=== PATIENT | female | born 1985 | race Caucasian/White ===

== ENCOUNTER 2019-06-21 16:04 | Outpatient (CLI) | payer BC ==
--- NOTE | 2019-06-21 17:00 | Non Stress Test Report ---
Non Stress Test Datetime Report Generated by CPN: 06/21/2019 17:00 DEMOGRAPHIC Test Number: 1 Test Number: 1 EGA NST: 38.5 INDICATION Indication for Study (NST) Other: Provider Order Indication for Study (NST) Other: Repeat NST low baseline in office VITAL SIGNS Temperature - NST: 98.3 Pulse - NST: 70 RESP - NST: 18 NBPSYS NST: 118 NBPDIA NST: 66 MONITORING Monitor Explained: Monitor Explained; Test Explained; Patient Verbalized Understanding Monitor Explained: Monitor Explained; Test Explained; Patient Verbalized Understanding Time on Monitor: 06/21/2019 16:31 Time on Monitor: 06/21/2019 16:34 Time off Monitor: 06/21/2019 16:59 NST Duration: 28 NST INTERVENTIONS NST Interventions: None NST Interventions: PO Hydration Physician Notified NST: AWynn,CNM BABY A: [id number] BABY A Movement : Present Movement : Present Contraction Frequency : 0 FHR Baseline : 115 FHR Baseline : 115 Accelerations : 15X15 Accelerations : 15X15 Decelerations : None Decelerations : None Variability : Absent - Undetectable Variability : Moderate 6-25bpm NST Review: Meets Criteria for Reactive NST NST Review: Meets Criteria for Reactive NST NST Review and Verified By : LIBIA Hardin Results: Reactive NST Results: Reactive NST REPORT Report Trigger: Send Report
[2019-06-21] MEDS ORDERED: METOPROLOL TARTRATE 25 MG TABLET PO ONE (17:30)
== END 2019-06-21 16:09 | disposition home or self-care (01) ==
LOC: LC 16:04
PROVIDERS: ATTEND Obstetrics & Gynecology
DX: O36.8330 Maternal care for abnormalities of the fetal heart rate or rhythm, third trimester, not applicable or unspecified (principal); Z3A.38 38 weeks gestation of pregnancy
CPT/HCPCS: 59025

== ENCOUNTER 2019-06-30 06:05 | Inpatient (IN) | payer BC ==
[2019-06-30] MEDS ORDERED: PENICILLIN G-K 5 MILLION UNIT VIAL ONE ×2 (07:09→10:52)
[2019-06-30] MEDS ORDERED: MISOPROSTOL 0.2 MG TABLET ONE (07:27)
[2019-06-30] MEDS ORDERED: LIDOCAINE 1% INJ-PF (10 MG/ML) 30 ML SDV ONE (07:27)
[2019-06-30] MEDS ORDERED: OXYTOCIN 10 UNIT/ML VIAL ONE ×2 (07:27→13:42)
[2019-06-30] MEDS ORDERED: OXYTOCIN/0.9 % SODIUM CHLORIDE 30 UNIT/500 ML RTUINJ ONE ×2 (07:28→12:13)
[2019-06-30 07:41] LABS: ABSOLUTE BASOPHILS # (AUTO) 0.1 10^3/uL (0.0-0.2); ABSOLUTE LYMPHOCYTES (AUTO) 1.7 10^3/uL (0.5-4.7); ABSOLUTE NEUT (AUTO) 16.6 10^3/uL (1.7-8.2); BASOPHILS % (AUTO) 0.5 % (0-2); EOSINOPHILS % (AUTO) 0.1 % (0-6); HEMATOCRIT 30.4 % (36.0-47.0); HEMOGLOBIN 10.7 g/dL (12.0-15.5); LYMPHOCYTES % (AUTO) 8.6 % (13-45); MEAN CORPUSCULAR HGB CONC 35.1 g/dL (32.0-36.0); MEAN CORPUSCULAR VOLUME 94 fl (80-97); MONOCYTES % (AUTO) 5.4 % (3-13); PLATELET COUNT 199 10^3/uL (150-450); RED BLOOD COUNT 3.23 10^6/uL (3.72-5.28); RED CELL DISTRIBUTION WIDTH 12.7 % (11.5-14.0); SEGMENTED NEUTROPHILS % (AUTO) 85.4 % (42-78); TOTAL CELLS COUNTED % (AUTO) 100 %; WHITE BLOOD COUNT 19.4 10^3/uL (4.0-10.5)
[2019-06-30] MEDS ORDERED: PENICILLIN G POTASSIUM 5,000,000 UNIT in DEXTROSE 5%-WATER 100 ML IV ONE (07:58)
[2019-06-30] MEDS ORDERED: RINGERS SOLUTION,LACTATED 1,000 ML IV ONE (07:58)
[2019-06-30] MEDS: RINGERS SOLUTION,LACTATED 1,000 ML IV PRN (08:06)
--- NOTE | 2019-06-30 09:29 | Admission Physical ---
Datetime Report Generated by CPN: 06/30/2019 09:28 CURRENT ADMISSION Hx Assessment: The History has been Reviewed and is Current Chief Complaint: Uterine Contractions; Suspected Ruptured Membranes Indication for Induction: Not Applicable Admit Impression : Term, Intrauterine Admit Plan: Admit to Unit; Initiate Labor Protocol ALLERGIES Medication Allergies: No Medication Allergies: No Known Allergies (06/21/2019) Latex: No Latex Allergies OBSTETRICAL HISTORY EDC: 06/30/2019 00:00 : 1 Para: 0 Term: 0 : 0 SAB: 0 IAB: 0 Ectopic: 0 Livin Cesareans: 0 VBACs: 0 Multiple Births: 0 Gestational Diabetes: No Rh Sensitization: No Incompetent Cervix: No CAIT: No Infertility: No ART Treatment: No Uterine Anomaly: No IUGR: No Hx Previous C/S: No Macrosomia: No Hx Loss/Stillborn: No PIH: No Hx : No Placenta Previa/Abruption: No Depression/PP Depression: No PTL/PROM: No Post Hemorrhage: No Current Procedures: Ultrasound Obstetrical History Comments: G1- Current SEE RECORDS Alcohol: No Marijuana : No Cocaine: No Other Illicit Drugs: No Cigarettes: Never Smoker. [id number] MEDICAL HISTORY Diabetes: No Blood Transfusion: No Pulmonary Disease (Asthma, TB): No Breast Disease: No Hypertension: No Geochemist Surgery: No Heart Disease: No Hosp/Surgery: No Autoimmune Disorder: No Anesthetic Complications: No Kidney Disease: No Abnormal Pap Smear: No Neuro/Epilepsy: No Psychiatric Disorders: No Other Medical Diseases: No Hepatitis/Liver Disease: No Significant Family History: No Varicosities/Phlebitis: No Trauma/Violence : No Thyroid Dysfunction: No Medical History Comments: Anxiety INFECTIOUS HISTORY Gonorrhea: No Genital Herpes: No Chlamydia: No Tuberculosis: No Syphilis: No Hepatitis: No HIV/AIDS Exposure: No Rash or Viral Illness: No HPV: No PHYSICAL EXAM General: Normal Heart: Normal Lungs: Normal Abdomen: Normal Extremities: Normal Pelvic Type: Adequate Vital Signs: Reviewed MEMBRANES Membranes: Ruptured Amniotic Fluid Color: Clear FETUS A EGA: 40.0 Monitoring: External US Variability: Moderate 6-25bpm Decelerations: None Estimated Weight (gm): 3786 Presentation: Vertex Admit Comment: 33yo G1 @ 40wga into L_D with SROM @ 0215 and UC. Pt is A pos, Rubella Non-Immune, GBS pos, with hx of oral surgery and lasik. complicated by questionable echogenic bowel and intracardiac echogenic flow in left ventricle on anatomy u/s with normal flow on echo. Pt just transfered in from [place] at 38w5d. Plan is delivery, epidural prn. Dr. Cardoza is the OB wafer production lead worker today and aware of admission and pt status. PLANS FOR LABOR AND DELIVERY Labor and Delivery: None Pain Management: None Other Pain Management Plans: Avoiding epidural Feeding Preference: Breast Benefit of Breast Feed Discussed: Yes Circumcision: N/A INFORMED CONSENT Assignment: Minesh Cardoza MD Signature: with User ID: [email or web address] : with User ID: [email or web address]
[2019-06-30] MEDS ORDERED: DEXAMETHASONE SOD PHOSPHATE INJ 4 MG/1 ML VIAL ONE (09:31)
[2019-06-30] MEDS ORDERED: ONDANSETRON HCL INJ/PF 4 MG/2 ML SDV ONE (09:31)
[2019-06-30] MEDS ORDERED: PHENYLEPHRINE HCL INJ/PF 10 MG/1 ML SDV ONE (09:31)
[2019-06-30] MEDS ORDERED: SUCCINYLCHOLINE CHLORIDE INJ 200 MG/10 ML VIAL ONE (09:31)
[2019-06-30] MEDS ORDERED: ROCURONIUM BROMIDE INJ 50 MG/5 ML VIAL IV ONE (09:31)
[2019-06-30 09:50] LABS: APPEARANCE,URINE TURBID; BILIRUBIN,URINE NEGATIVE (NEGATIVE); COLOR,URINE YELLOW; GLUCOSE, URINE NEGATIVE (NEGATIVE); KETONES,URINE TRACE mg/dL (NEGATIVE); LEUKOCYTE ESTERASE,URINE MODERATE (NEGATIVE); NITRITE,URINE NEGATIVE (NEGATIVE); PROTEIN,URINE 100 mg/dL (NEGATIVE); URINE SPECIFIC GRAVITY 1.012; UROBILINOGEN,URINE NEGATIVE mg/dL (<2.0)
[2019-06-30 10:37] LABS: URINE AMPHETAMINES SCREEN NEGATIVE; URINE BARBITURATES SCREEN NEGATIVE; URINE BENZODIAZEPINES SCREEN NEGATIVE; URINE COCAINE SCREEN NEGATIVE; URINE MARIJUANA (THC) SCREEN NEGATIVE; URINE METHADONE SCREEN NEGATIVE; URINE PHENCYCLIDINE SCREEN NEGATIVE
[2019-06-30] MEDS ORDERED: FENTANYL CITRATE INJ/PF 100 MCG/2 ML AMPUL ONE ×2 (10:39→13:02)
[2019-06-30] MEDS ORDERED: FENTANYL CITRATE INJ/PF 100 MCG/2 ML AMPUL IV ONE (10:45)
[2019-06-30] MEDS: PENICILLIN G POTASSIUM 2,500,000 UNIT in DEXTROSE 5%-WATER 50 ML IV SCH ×2 (10:59→18:17)
[2019-06-30] MEDS ORDERED: METHYLERGONOVINE MALEATE INJ/PF 0.2 MG/1 ML AMPULE IM ONE (12:05)
[2019-06-30] MEDS ORDERED: METHYLERGONOVINE MALEATE INJ/PF 0.2 MG/1 ML AMPULE ONE (12:08)
[2019-06-30] MEDS ORDERED: TRANEXAMIC ACID INJ/PF 1,000 MG/10 ML SDV IV ONE (12:10)
[2019-06-30] MEDS ORDERED: PSEUDOEPHEDRINE HCL 30 MG TABLET PO PRN (12:12)
[2019-06-30] MEDS ORDERED: ACETAMINOPHEN WITH CODEINE #3 TABLET PO PRN (12:12)
[2019-06-30] MEDS ORDERED: NA PHOS,M-B/NA PHOS,DI-BA (ADULT) 133 ML ENEMA PR PRN (12:12)
[2019-06-30] MEDS ORDERED: OXYTOCIN/0.9 % SODIUM CHLORIDE 30 UNIT/500 ML RTUINJ IV PRN (12:12)
[2019-06-30] MEDS ORDERED: MAGNESIUM HYDROXIDE SUSP 30 ML UDCUP PO PRN (12:12)
[2019-06-30] MEDS ORDERED: PROMETHAZINE HCL INJ 25 MG/1 ML VIAL IV PRN (12:12)
[2019-06-30] MEDS ORDERED: ZOLPIDEM TARTRATE 5 MG TABLET PO PRN (12:12)
[2019-06-30] MEDS ORDERED: DIPHENHYDRAMINE HCL 25 MG CAPSULE PO PRN (12:12)
[2019-06-30] MEDS ORDERED: PROMETHAZINE HCL 25 MG TABLET PO PRN (12:12)
[2019-06-30] MEDS ORDERED: DIPH/PERTUSS(ACELL)/TETANUS VAC/PF 0.5 ML SYR (>=10YO) IM PRN (12:12)
[2019-06-30] MEDS ORDERED: DIBUCAINE 1% OINTMENT 28 GM TP PRN (12:12)
[2019-06-30] MEDS ORDERED: GLYCERIN/WITCH HAZEL LEAF 1 EACH MED..WIPE TP PRN (12:12)
[2019-06-30] MEDS ORDERED: MEASLES,MUMPS&RUBELLA VACC/PF 0.5 ML VIAL SUBCUT PRN (12:12)
[2019-06-30] MEDS ORDERED: BENZOCAINE/MENTHOL AEROSOL SPRAY 56 ML TOP PRN (12:12)
[2019-06-30] MEDS ORDERED: ACETAMINOPHEN 650 MG SUPP.RECT PR PRN (12:12)
[2019-06-30] MEDS ORDERED: PROMETHAZINE HCL 25 MG SUPP.RECT PR PRN (12:12)
[2019-06-30] MEDS ORDERED: TRANEXAMIC ACID INJ/PF 1,000 MG/10 ML SDV ONE (12:13)
[2019-06-30] MEDS ORDERED: OXYTOCIN/0.9 % SODIUM CHLORIDE 30 UNIT/500 ML RTUINJ IV ONE (12:15)
[2019-06-30] MEDS ORDERED: CARBOPROST TROMETHAMINE INJ 250 MCG/1 ML AMPULE IM ONE (12:20)
[2019-06-30] MEDS ORDERED: HYDROMORPHONE HCL INJ/PF 2 MG/ML AMPULE IV ONE (12:20)
[2019-06-30] MEDS ORDERED: HYDROMORPHONE HCL INJ/PF 2 MG/ML AMPULE ONE ×2 (12:23→13:01)
[2019-06-30] MEDS ORDERED: CARBOPROST TROMETHAMINE INJ 250 MCG/1 ML AMPULE ONE (12:23)
[2019-06-30] MEDS ORDERED: ACETAMINOPHEN 325 MG TABLET ONE (12:44)
[2019-06-30] MEDS ORDERED: LOPERAMIDE HCL 2 MG CAPSULE ONE (12:44)
[2019-06-30] MEDS ORDERED: AMPICILLIN SOD/SULBACTAM 3 GM VIAL IV ONE (12:45)
[2019-06-30] MEDS ORDERED: AMPICILLIN SOD/SULBACTAM 3 GM VIAL ONE ×2 (12:45→20:59)
[2019-06-30 12:53] LABS: FIBRINOGEN 373 mg/dL (209-497); INTERNATIONAL RATION (INR) 1.06; PARTIAL THROMBOPLASTIN TIME 23.5 SEC (23.5-35.8); PROTHROMBIN TIME 13.8 SEC (11.4-15.4)
[2019-06-30] MEDS ORDERED: MIDAZOLAM 2 MG/2 ML INJ ONE (13:02)
[2019-06-30] MEDS ORDERED: PROPOFOL INJ 200 MG/20 ML VIAL IV ONE (13:02)
[2019-06-30 13:03] LABS: HEMATOCRIT 26.7 % (36.0-47.0); HEMOGLOBIN 9.1 g/dL (12.0-15.5); MEAN CORPUSCULAR HEMOGLOBIN 32.2 pg (27.0-33.4); MEAN CORPUSCULAR VOLUME 95 fl (80-97); PLATELET COUNT 315 10^3/uL (150-450); RED BLOOD COUNT 2.81 10^6/uL (3.72-5.28); RED CELL DISTRIBUTION WIDTH 12.7 % (11.5-14.0); WHITE BLOOD COUNT 29.4 10^3/uL (4.0-10.5)
[2019-06-30 13:31] LABS: ABSOLUTE LYMPHOCYTES# (MANUAL) 1.5 10^3/uL (0.5-4.7); ABSOLUTE MONOCYTES # (MANUAL) 2.1 10^3/uL (0.1-1.4); BASOPHILS % (MANUAL) 0 % (0-2); EOSINOPHILS % (MANUAL) 0 % (0-6); LYMPHOCYTES % (MANUAL) 5 % (13-45); MONOCYTES % (MANUAL) 7 % (3-13); PLATELET COMMENT ADEQUATE; RBC MORPHOLOGY COMMENT NORMO-CYTIC/CHROMIC; SEGMENTED NEUTROPHILS % (MAN) 88 % (42-78); TOTAL CELLS COUNTED 100; TOXIC GRANULATION SLIGHT
--- NOTE | 2019-06-30 14:16 | Operative Report ---
Operative Report DATE OF SURGERY: 06/30/19 PREOPERATIVE DIAGNOSIS: hemorrhage with uterine atony POSTOPERATIVE DIAGNOSIS: Same OPERATION: Exam under anesthesia sharp curettage uterine packing SURGEON: BLANCA BISHOP CHILD SUPPORT AGENT: KHLOE JONES ANESTHESIA: GA TISSUE REMOVED OR ALTERED: Uterine contents COMPLICATIONS: None ESTIMATED BLOOD LOSS: Approximately 300 cc PROCEDURE: Patient was taken to the OR prepped draped sterile fashion placed in a dorsal lithotomy position speculum is placed and cervix visualized and grasped with a ring forceps. Copious blood clots were then removed with manual effort. Following this sharp curettage was performed. Uterus was then packed with a Kerlix pack. A previously noted midline abrasion with all her repeated examinations had extended to the right vaginal wall this defect was closed with a running suture of 0 chromic. Procedure was terminated she was taken to recovery room in good condition
--- NOTE | 2019-06-30 16:02 | Delivery Summary ---
Del Sum A-C Datetime Report Generated by CPN: 06/30/2019 16:02 DELIVERY PERSONNEL DELIVERY PERSONNEL: [id number] Delivery Doctor:: Minesh Cardoza MD Labor and Delivery Nurse:: Kathy Trujillo RNinstrument repairer steam plant Nurse:: RATNA Lara Mobile Paint Specialist:: Vanessa Khanna RN Java Software Developer/FIELD HAULER: Ruth Robles, SHALE PROCESSING TECHNICIAN Java Software Developer/FIELD HAULER: Sonia Hawkins, ST MATERNAL INFORMATION Delivery Anesthesia: None Medications After Delivery: Pitocin Bolus-Please Comment; Pitocin 30 Units in 500ml NS/D5W; Methergine 0.2mg IM; Cytotec 1000mcg Per Rectum/Vagina; Other-Please Comment Meds After Delivery Comment: TXA, hemabate Delivery QBL Comment: Over 2000ml blood loss, patient taken to O.R. for D_C Maternal Complications: None; Hemorrhage LABOR SUMMARY EDC: 06/30/2019 00:00 No. Babies in Womb: 1 Attempted: No Labor Anesthesia: IV Sedation LABOR INFORMATION Reason for Induction: Not Applicable Onset of Labor: 06/30/2019 02:45 Complete Dilatation: 06/30/2019 11:14 Oxytocin: N/A Group B Beta Strep: Positive Antibiotics # of Doses: 2 Antibiotics Time of Last Dose: 1100 Name of Antibiotic Given: Penicillin Steroids Given: None Reason Steroids Not Administered: Not Applicable MEMBRANES Membranes Rupture Method: Spontaneous Rupture of Membranes: 06/30/2019 02:45 Length of Rupture (hr): 9.27 Amniotic Fluid Color: Clear Amniotic Fluid Amount: Small Amniotic Fluid Odor: Normal STAGES OF LABOR Stage 1 hr: 8 Stage 1 min: 29 Stage 2 hr: 0 Stage 2 min: 47 Stage 3 hr: 0 Stage 3 min: 3 Total Time in Labor hr: 9 Total Time in Labor min: 19 VAGINAL DELIVERY Episiotomy: None Laceration #1: Vaginal Laceration Extension #1: N/A Laceration Repair: Not Applicable Laceration Repair Note: did not require repair BABY A INFORMATION Infant Delivery Date/Time: 06/30/2019 12:01 Method of Delivery: Vaginal Nurse Controlled Delivery: No Born in Route : No : N/A Forceps: N/A Vacuum Extraction: N/A Shoulder Dystocia : No PRESENTATION/POSITION BABY A Presentation: Cephalic Cephalic Presentation: Vertex Vertex Position: Right Occipital Anterior Breech Presentation: N/A PLACENTA INFORMATION BABY A Placenta Delivery Time : 06/30/2019 12:04 Placenta Method of Delivery: Spontaneous Placenta Status: Delivered SCORES BABY A Heart Rate 1 min: >100 bpm Resp Effort 1 min: Good Cry Reflex Irritability 1 min: Grimace Muscle Tone 1 min: Some Flexion of Extremities Color 1 min: Blue/Pale SCORE 1 MIN: 6 Heart Rate 5 min: >100 bpm Resp Effort 5 min: Good Cry Reflex Irritability 5 min: Cough or Sneeze or Pulls Away Muscle Tone 5 min: Active Motion Color 5 min: Body Dale, Extremities Blue SCORE 5 MIN: 9 INFORMATION BABY A Gestational Age at Delivery: 40.0 Gestational Status: Full Term- 39- 40.6 Weeks Infant Outcome : Liveborn Condition : Stable Infant Sex: Female WEIGHT/LENGTH BABY A Birthweight (gm): 3810 Infant Weight (lb): 8 Infant Weight (oz): 6 Infant Length (in): 20.50 Length (cm): 52.07 CORD INFORMATION BABY A No. Cord Vessels: 3 Nuchal Cord : Around Neck x1, Loose Cord Blood Taken: Yes-For Storage (Mom's Blood type +) Suction: None ASSESSMENT BABY A Complications: None Physical Findings at Delivery: Within Normal Limits Respirations: Appears Normal Skin to Skin: No Poultry Vaccinator/ALS Called : No Transferred To: [facility] BABY B INFORMATION : N/A SIGNATURES Signature: with User ID: [email or web address]
[2019-06-30] MEDS: IBUPROFEN 800 MG TABLET PO SCH ×2 (16:26→22:04)
[2019-06-30] MEDS ORDERED: METHYLERGONOVINE MALEATE 0.2 MG TABLET ONE ×2 (18:09→22:01)
[2019-06-30] MEDS ORDERED: FERROUS SULFATE 325 MG TABLET PO ONE (18:19)
[2019-06-30] MEDS ORDERED: DOCUSATE SODIUM 100 MG CAPSULE ONE (18:19)
[2019-06-30] MEDS: METHYLERGONOVINE MALEATE 0.2 MG TABLET PO SCH ×2 (18:20→22:04)
[2019-06-30] MEDS: FERROUS SULFATE 325 MG TABLET PO SCH (18:20)
[2019-06-30] MEDS: DOCUSATE SODIUM 100 MG CAPSULE PO SCH (18:20)
[2019-06-30] MEDS ORDERED: AMPICILLIN SOD/SULBACTAM 3 GM VIAL IV SCH (21:00)
[2019-06-30] MEDS: AMPICILLIN SODIUM/SULBACTAM NA 3 GM in NORMAL SALINE 100 ML IV SCH (21:08)
[2019-06-30 21:17] LABS: HEMATOCRIT 26.2 % (36.0-47.0); HEMOGLOBIN 9.2 g/dL (12.0-15.5); MEAN CORPUSCULAR HEMOGLOBIN 32.2 pg (27.0-33.4); MEAN CORPUSCULAR HGB CONC 35.1 g/dL (32.0-36.0); MEAN CORPUSCULAR VOLUME 92 fl (80-97); PLATELET COUNT 202 10^3/uL (150-450); RED BLOOD COUNT 2.85 10^6/uL (3.72-5.28); RED CELL DISTRIBUTION WIDTH 13.7 % (11.5-14.0); WHITE BLOOD COUNT 29.9 10^3/uL (4.0-10.5)
[2019-06-30 21:38] LABS: ABSOLUTE LYMPHOCYTES# (MANUAL) 1.5 10^3/uL (0.5-4.7); ABSOLUTE MONOCYTES # (MANUAL) 0.6 10^3/uL (0.1-1.4); BAND NEUTROPHILS % (MANUAL) 2 % (3-5); BASOPHILS % (MANUAL) 0 % (0-2); EOSINOPHILS % (MANUAL) 0 % (0-6); LYMPHOCYTES % (MANUAL) 5 % (13-45); METAMYELOCYTES % (MANUAL) 1 % (0-1); MONOCYTES % (MANUAL) 2 % (3-13); SEGMENTED NEUTROPHILS % (MAN) 90 % (42-78); TOTAL CELLS COUNTED 100
[2019-06-30 21:39] LABS: OVALOCYTES SLIGHT; PLATELET COMMENT ADEQUATE; POIKILOCYTOSIS SLIGHT
[2019-06-30 21:40] LABS: TOXIC GRANULATION SLIGHT
[2019-06-30] MEDS ORDERED: IBUPROFEN 800 MG TABLET ONE (22:01)
[2019-06-30] MEDS ORDERED: FAMOTIDINE 20 MG TABLET ONE (22:01)
[2019-06-30] MEDS: FAMOTIDINE 20 MG TABLET PO SCH (22:04)
[2019-07-01] MEDS ORDERED: METHYLERGONOVINE MALEATE 0.2 MG TABLET ONE ×5 (01:58→18:48)
[2019-07-01] MEDS: METHYLERGONOVINE MALEATE 0.2 MG TABLET PO SCH ×5 (02:01→18:48)
[2019-07-01] MEDS: RINGERS SOLUTION,LACTATED 1,000 ML IV PRN (02:02)
[2019-07-01] MEDS: AMPICILLIN SODIUM/SULBACTAM NA 3 GM in NORMAL SALINE 100 ML IV SCH ×3 (05:03→21:15)
[2019-07-01] MEDS ORDERED: IBUPROFEN 800 MG TABLET ONE ×3 (05:59→21:01)
[2019-07-01] MEDS: IBUPROFEN 800 MG TABLET PO SCH ×3 (06:02→21:14)
[2019-07-01 06:57] LABS: HEMATOCRIT 22.6 % (36.0-47.0); MEAN CORPUSCULAR HEMOGLOBIN 32.1 pg (27.0-33.4); MEAN CORPUSCULAR HGB CONC 34.8 g/dL (32.0-36.0); MEAN CORPUSCULAR VOLUME 92 fl (80-97); PLATELET COUNT 185 10^3/uL (150-450); RED BLOOD COUNT 2.46 10^6/uL (3.72-5.28); RED CELL DISTRIBUTION WIDTH 14.3 % (11.5-14.0); WHITE BLOOD COUNT 23.6 10^3/uL (4.0-10.5)
[2019-07-01 07:08] LABS: HEMOGLOBIN 7.9 g/dL (12.0-15.5)
[2019-07-01] MEDS ORDERED: NORMAL SALINE 250 ML IV PRN (07:36)
[2019-07-01] MEDS ORDERED: PRENATAL VITAMIN W DHA CAPSULE PO ONE (09:02)
[2019-07-01] MEDS ORDERED: FAMOTIDINE 20 MG TABLET ONE (09:02)
[2019-07-01] MEDS ORDERED: DOCUSATE SODIUM 100 MG CAPSULE ONE ×2 (09:03→18:47)
[2019-07-01] MEDS ORDERED: FERROUS SULFATE 325 MG TABLET PO ONE ×2 (09:03→18:47)
[2019-07-01] MEDS: DOCUSATE SODIUM 100 MG CAPSULE PO SCH ×2 (09:05→18:48)
[2019-07-01] MEDS: FAMOTIDINE 20 MG TABLET PO SCH ×2 (09:05→22:24)
[2019-07-01] MEDS: FERROUS SULFATE 325 MG TABLET PO SCH ×2 (09:05→18:49)
[2019-07-01] MEDS: PRENATAL VITAMIN W DHA CAPSULE PO SCH (09:05)
[2019-07-01] MEDS: SENNOSIDES/DOCUSATE 8.6-50 MG 1 EACH TABLET PO SCH (10:37)
[2019-07-01 12:57] LABS: HEMATOCRIT 25.1 % (36.0-47.0); HEMOGLOBIN 8.7 g/dL (12.0-15.5); MEAN CORPUSCULAR HEMOGLOBIN 31.1 pg (27.0-33.4); MEAN CORPUSCULAR HGB CONC 34.8 g/dL (32.0-36.0); MEAN CORPUSCULAR VOLUME 89 fl (80-97); PLATELET COUNT 164 10^3/uL (150-450); RED BLOOD COUNT 2.81 10^6/uL (3.72-5.28); RED CELL DISTRIBUTION WIDTH 15.4 % (11.5-14.0); WHITE BLOOD COUNT 20.2 10^3/uL (4.0-10.5)
--- NOTE | 2019-07-01 15:59 | PDOC PROGRESS REPORT ---
Subjective Progress Note for:: 07/01/19 Subjective:: s/p PPH after vaginal delivery, +flatus, lopez to gravity in place. No BM. Feels better after 3rd unit of blood. denies dizziness, minimal bleeding through packing. Reason For Visit: IUP @ 40 WEEKS SROM, s/p vaginal delivery, with large pph, s/p 3 units PRBCs, s/p PP D&C due to uterine atony Physical Exam - Physical Exam Vital Signs: Temp Pulse Resp BP Pulse Ox 98.9 F 78 16 123/63 97 07/01/19 10:32 07/01/19 10:32 07/01/19 10:32 07/01/19 10:32 07/01/19 10:32 Intake & Output 06/30/19 07/01/19 07/02/19 06:59 06:59 06:59 Intake Total 3200 300 Output Total 300 Balance 2900 300 Weight 93 kg General appearance: PRESENT: no acute distress, well-developed, well-nourished Head exam: PRESENT: atraumatic, normocephalic Respiratory exam: PRESENT: clear to auscultation michael, symmetrical, unlabored Cardiovascular exam: PRESENT: RRR. ABSENT: diastolic murmur, rubs, systolic murmur GI/Abdominal exam: PRESENT: normal bowel sounds, soft, other - fundus below umbilicus1-2cm, marking placed for continued tracking.. ABSENT: distended, guarding, mass, organolmegaly, rebound, tenderness Rectal exam: PRESENT: deferred Extremities exam: PRESENT: full ROM. ABSENT: calf tenderness, clubbing, pedal edema Neurological exam: PRESENT: alert, awake, oriented to person, oriented to place, oriented to time, oriented to situation, CN II-XII grossly intact. ABSENT: motor sensory deficit Skin exam: PRESENT: dry, intact, warm. ABSENT: cyanosis, rash Result Laboratory Results: 07/01/19 12:34 06/30/19 06/30/19 07/01/19 07:26 21:02 06:35 WBC 29.9 H 23.6 H RBC 2.85 L 2.46 L Hgb 9.2 L 7.9 L Hct 26.2 L 22.6 L MCV 92 92 MCH 32.2 32.1 MCHC 35.1 34.8 RDW 13.7 14.3 H Plt Count 202 185 Seg Neutrophils % Not Reportable Blood Type A POSITIVE Antibody Screen NEGATIVE 07/01/19 12:34 WBC 20.2 H RBC 2.81 L Hgb 8.7 L Hct 25.1 L MCV 89 MCH 31.1 MCHC 34.8 RDW 15.4 H Plt Count 164 Seg Neutrophils % Blood Type Antibody Screen Assessment & Plan - Diagnosis (1) Anemia due to blood loss, acute Is this a current diagnosis for this admission?: Yes (2) Vaginal delivery Is this a current diagnosis for this admission?: Yes Plan: vaginal delivery complicated by PPH (3) Obstetrical laceration, first degree Is this a current diagnosis for this admission?: Yes Plan: repaired 1st degree laceration in OR (4) Carrier of group B Streptococcus Is this a current diagnosis for this admission?: Yes Plan: PCN given for GBS prophy (5) Anemia complicating , third trimester Is this a current diagnosis for this admission?: Yes Plan: mild anemia associated with on admission, likely iron deficiency (6) hemorrhage Qualifiers: hemorrhage type: other immediate Qualified Code(s): O72.1 - Other immediate hemorrhage Is this a current diagnosis for this admission?: Yes Plan: 2500ml to 3000ml for delivery, 300ml in OR, 124ml in recovery after OR. received 2 units of blood yesterday and after CBC noted this am - 1 additional unit given. (7) S/P D&C (status post dilation and curettage) Is this a current diagnosis for this admission?: Yes Plan: hemorrhage with atony and underwent D&C and uterine packing. Uterine packing removed after 24 hours in placed with now minimal bleeding. After packing removed minimal bleeding noted. WIll continue to monitor blood loss, lopez to gravity in place. Increase activity. Reviewed likely will stay until Thursday (or Thursday) due to severe pph (8) Leukocytosis Is this a current diagnosis for this admission?: Yes Plan: COntinue Zosyn due to leukocytosis and multiple instrumentation with severe pph - Time Time Spent with patient: 25-34 minutes Medications reviewed and adjusted accordingly: Yes Within: within 72 hours - Inpatient Certification Based on my medical assessment, after consideration of the patient's comorbidities, presenting symptoms, or acuity I expect that the services needed warrant INPATIENT care.: Yes I certify that my determination is in accordance with my understanding of Medicare's requirements for reasonable and necessary INPATIENT services [42 CFR 412.3e].: Yes Medical Necessity: Need Close Monitoring Due to Risk of Patient Decompensation, Need For IV Fluids, Need for Pain Control, Need for IV Antibiotics
[2019-07-02] MEDS ORDERED: IBUPROFEN 800 MG TABLET ONE (05:13)
[2019-07-02] MEDS: IBUPROFEN 800 MG TABLET PO SCH ×3 (05:16→21:38)
[2019-07-02] MEDS: AMPICILLIN SODIUM/SULBACTAM NA 3 GM in NORMAL SALINE 100 ML IV SCH ×2 (05:17→14:09)
[2019-07-02 07:54] LABS: ABSOLUTE BASOPHILS # (AUTO) 0.1 10^3/uL (0.0-0.2); ABSOLUTE EOSINOPHILS # (AUTO) 0.1 10^3/uL (0.0-0.6); ABSOLUTE LYMPHOCYTES (AUTO) 2.6 10^3/uL (0.5-4.7); ABSOLUTE MONOCYTES (AUTO) 1.1 10^3/uL (0.1-1.4); ABSOLUTE NEUT (AUTO) 11.8 10^3/uL (1.7-8.2); BASOPHILS % (AUTO) 0.3 % (0-2); EOSINOPHILS % (AUTO) 0.8 % (0-6); HEMATOCRIT 24.7 % (36.0-47.0); HEMOGLOBIN 8.5 g/dL (12.0-15.5); LYMPHOCYTES % (AUTO) 16.7 % (13-45); MEAN CORPUSCULAR HEMOGLOBIN 31.2 pg (27.0-33.4); MEAN CORPUSCULAR HGB CONC 34.4 g/dL (32.0-36.0); MEAN CORPUSCULAR VOLUME 91 fl (80-97); MONOCYTES % (AUTO) 7.3 % (3-13); PLATELET COUNT 166 10^3/uL (150-450); RED BLOOD COUNT 2.72 10^6/uL (3.72-5.28); SEGMENTED NEUTROPHILS % (AUTO) 74.9 % (42-78); TOTAL CELLS COUNTED % (AUTO) 100 %; WHITE BLOOD COUNT 15.7 10^3/uL (4.0-10.5)
[2019-07-02] MEDS: PRENATAL VITAMIN W DHA CAPSULE PO SCH (09:24)
[2019-07-02] MEDS: FERROUS SULFATE 325 MG TABLET PO SCH ×2 (09:25→18:43)
[2019-07-02] MEDS: SENNOSIDES/DOCUSATE 8.6-50 MG 1 EACH TABLET PO SCH (09:25)
[2019-07-02] MEDS: DOCUSATE SODIUM 100 MG CAPSULE PO SCH ×2 (09:25→18:43)
[2019-07-02] MEDS: FAMOTIDINE 20 MG TABLET PO SCH ×2 (09:26→21:38)
[2019-07-03] MEDS: IBUPROFEN 800 MG TABLET PO SCH (06:37)
[2019-07-03] MEDS: SENNOSIDES/DOCUSATE 8.6-50 MG 1 EACH TABLET PO SCH (10:04)
[2019-07-03] MEDS: PRENATAL VITAMIN W DHA CAPSULE PO SCH (10:04)
[2019-07-03] MEDS: FERROUS SULFATE 325 MG TABLET PO SCH (10:04)
[2019-07-03] MEDS: DOCUSATE SODIUM 100 MG CAPSULE PO SCH (10:04)
[2019-07-03] MEDS: FAMOTIDINE 20 MG TABLET PO SCH (10:06)
--- NOTE | 2019-07-03 11:02 | PDOC DISCHARGE SUMMARY ---
Impression - Admit/DC Date/PCP Admission Date/Primary Care Provider: 06/30/19 07:07 ANDREW FORD MD Discharge Date: 07/03/19 - Discharge Diagnosis (1) Anemia complicating , third trimester Is this a current diagnosis for this admission?: Yes (2) Anemia due to blood loss, acute Is this a current diagnosis for this admission?: Yes (3) Carrier of group B Streptococcus Is this a current diagnosis for this admission?: Yes (4) Leukocytosis Is this a current diagnosis for this admission?: Yes (5) Obstetrical laceration, first degree Is this a current diagnosis for this admission?: Yes (6) hemorrhage Is this a current diagnosis for this admission?: Yes (7) S/P D&C (status post dilation and curettage) Is this a current diagnosis for this admission?: Yes (8) Spontaneous rupture of membranes Is this a current diagnosis for this admission?: Yes (9) Vaginal delivery Is this a current diagnosis for this admission?: Yes - Additional Information Resuscitation Status: Full Code Discharge Diet: Regular Discharge Activity: Balance Activity w/Rest, Pelvic Rest Referrals: ANDREW FORD MD [Primary Care Provider] - Prescriptions: Ibuprofen [Motrin 800 mg Tablet] 800 mg PO Q8HP PRN #60 tablet PRN Reason: Home Medications: Pnv 102/Iron/Folate 1/Dss/Dha [Vitafol Fe+ Docusate Combo Pck] 1 tab PO DAILY 06/21/19 Ibuprofen [Motrin 800 mg Tablet] 800 mg PO Q8HP PRN #60 tablet 07/03/19 Results Laboratory Results: WBC 15.7 10^3/uL (4.0-10.5) H 07/02/19 07:22 RBC 2.72 10^6/uL (3.72-5.28) L 07/02/19 07:22 Hgb 8.5 g/dL (12.0-15.5) L 07/02/19 07:22 Hct 24.7 % (36.0-47.0) L 07/02/19 07:22 MCV 91 fl (80-97) 07/02/19 07:22 MCH 31.2 pg (27.0-33.4) 07/02/19 07:22 MCHC 34.4 g/dL (32.0-36.0) 07/02/19 07: RDW 16.0 % (11.5-14.0) H 07/02/19 07:22 Plt Count 166 10^3/uL (150-450) 07/02/19 07:22 Lymph % (Auto) 16.7 % (13-45) 07/02/19 07:22 [place] % (Auto) 7.3 % (3-13) 07/02/19 07:22 Eos % (Auto) 0.8 % (0-6) 07/02/19 07:22 Baso % (Auto) 0.3 % (0-2) 07/02/19 07:22 Absolute Neuts (auto) 11.8 10^3/uL (1.7-8.2) H 07/02/19 07:22 Absolute Lymphs (auto) 2.6 10^3/uL (0.5-4.7) 07/02/19 07:22 Absolute Monos (auto) 1.1 10^3/uL (0.1-1.4) 07/02/19 07:22 Absolute Eos (auto) 0.1 10^3/uL (0.0-0.6) 07/02/19 07:22 Absolute Basos (auto) 0.1 10^3/uL (0.0-0.2) 07/02/19 07:22 Total Counted 100 06/30/19 21:02 Seg Neutrophils % 74.9 % (42-78) 07/02/19 07:22 Seg Neuts % (Manual) 90 % (42-78) H 06/30/19 21:02 Band Neutrophils % 2 % (3-5) L 06/30/19 21:02 Lymphocytes % (Manual) 5 % (13-45) L 06/30/19 21:02 Monocytes % (Manual) 2 % (3-13) L 06/30/19 21:02 Eosinophils % (Manual) 0 % (0-6) 06/30/19 21:02 Basophils % (Manual) 0 % (0-2) 06/30/19 21:02 Metamyelocytes % 1 % (0-1) 06/30/19 21:02 Abs Neuts (Manual) 27.8 10^3/uL (1.7-8.2) H 06/30/19 21:02 Abs Lymphs (Manual) 1.5 10^3/uL (0.5-4.7) 06/30/19 21:02 Abs Monocytes (Manual) 0.6 10^3/uL (0.1-1.4) 06/30/19 21:02 Absolute Eos (Manual) 0.0 10^3/uL (0.0-0.6) 06/30/19 21:02 Abs Basophils (Manual) 0.0 10^3/uL (0.0-0.2) 06/30/19 21:02 Toxic Granulation SLIGHT 06/30/19 21:02 Platelet Comment ADEQUATE 06/30/19 21:02 Poikilocytosis SLIGHT 06/30/19 21:02 Ovalocytes SLIGHT 06/30/19 21:02 RBC Morph Comment NORMO-CYTIC/CHROMIC 06/30/19 12:39 PT 13.8 SEC (11.4-15.4) 06/30/19 12:39 INR 1.06 06/30/19 12:39 APTT 23.5 SEC (23.5-35.8) 06/30/19 12:39 Fibrinogen 373 mg/dL (209-497) 06/30/19 12:39 Urine Color YELLOW 06/30/19 06:13 Urine Appearance TURBID 06/30/19 06:13 Urine pH 7.0 (5.0-9.0) 06/30/19 06:13 Ur Specific [place] 1.012 06/30/19 06:13 Urine Protein 100 mg/dL (NEGATIVE) H 06/30/19 06:13 Urine Glucose (UA) NEGATIVE mg/dL (NEGATIVE) 06/30/19 06:13 Urine Ketones TRACE mg/dL (NEGATIVE) H 06/30/19 06:13 Urine Blood LARGE (NEGATIVE) H 06/30/19 06:13 Urine Nitrite NEGATIVE (NEGATIVE) 06/30/19 06:13 Urine Bilirubin NEGATIVE (NEGATIVE) 06/30/19 06:13 Urine Urobilinogen NEGATIVE mg/dL (<2.0) 06/30/19 06:13 Ur Leukocyte Esterase MODERATE (NEGATIVE) H 06/30/19 06:13 Urine Ascorbic Acid NEGATIVE (NEGATIVE) 06/30/19 06:13 Membranes Rupture POSITIVE (NEGATIVE) H 06/30/19 06:33 Urine Opiates Screen NEGATIVE 06/30/19 06:13 Urine Methadone Screen NEGATIVE 06/30/19 06:13 Ur Barbiturates Screen NEGATIVE 06/30/19 06:13 Ur Phencyclidine Scrn NEGATIVE 06/30/19 06:13 Ur Amphetamines Screen NEGATIVE 06/30/19 06:13 U Benzodiazepines Scrn NEGATIVE 06/30/19 06:13 Urine Cocaine Screen NEGATIVE 06/30/19 06:13 U Marijuana (THC) Screen NEGATIVE 06/30/19 06:13 RPR NONREACTIVE (NONREACTIVE) 06/30/19 07:26 Blood Type A POSITIVE 06/30/19 07:26 Blood Type Confirm Cancelled 06/30/19 12:39 Antibody Screen NEGATIVE 06/30/19 07:26 Crossmatch See Detail 06/30/19 07:26
[2019-07-03] MEDS ORDERED: IRON SUCROSE COMPLEX INJ/PF 100 MG/5 ML SDV IV ONE (12:00)
[2019-07-03 12:19] VITALS: BP 123/76
== END 2019-07-03 14:42 | disposition home or self-care (01) | DRG 797 ==
LOC: LC 06:05 → LR 07:07 → 2S 07-02 08:32
PROVIDERS: ADMIT Obstetrics & Gynecology Gynecology; ATTEND Obstetrics & Gynecology Gynecology
PROC: 10D17ZZ Extraction of Products of Conception, Retained, Via Natural or Artificial Opening (ICD-10-PCS; 2019-06-30)
PROC: 0HQ9XZZ Repair Perineum Skin, External Approach (ICD-10-PCS; 2019-06-30)
PROC: 30233N1 Transfusion of Nonautologous Red Blood Cells into Peripheral Vein, Percutaneous Approach (ICD-10-PCS; 2019-06-30)
PROC: 10E0XZZ Delivery of Products of Conception, External Approach (ICD-10-PCS; principal; 2019-06-30 13:30)
DX: O99.824 Streptococcus B carrier state complicating childbirth (principal); D62 Acute posthemorrhagic anemia; Z37.0 Single live birth; O90.81 Anemia of the puerperium; O70.0 First degree perineal laceration during delivery; O72.1 Other immediate postpartum hemorrhage; O69.81X0 Labor and delivery complicated by cord around neck, without compression, not applicable or unspecified; Z3A.40 40 weeks gestation of pregnancy
CPT/HCPCS: 36415; 36430; 80307; 81005; 84112; 85025; 85027; 85384; 85610; 85730; 86592; 86850; 86900; 86901; 86920; 88305; 940; 94760; 99140; J0295; J0330; J1100; J1170; J1756; J2210; J2250; J2370; J2405; J2540; J2590; J2704; J3010; J3490; J7050; J7060; P9016